=== PATIENT | male | born 1960 | race Hispanic/Latino ===

== ENCOUNTER 2018-11-22 08:06 | Day surgery (SDC) | payer MEDICAID ==
[~2018-11-22] VITALS: Ht 157.5 cm; Wt 91.6 kg
[~2018-11-22 08:06] MED LIST: CETI10CA5 PO; CHOL5POW MC; CLON0.5T23 PO; NIAC500C3 PO; PARO-37 PO; SODIUM CHLORIDE 0.9% 1000ML 1,000 ML IV ONE; TRAZ-187 PO
[2018-11-22 09:32] VITALS: BP 143/97
[2018-11-22 11:15] VITALS: BP 100/70
[2018-11-22 11:20] VITALS: BP 99/60
[2018-11-22 11:25] VITALS: BP 102/78
[2018-11-22 11:30] VITALS: BP 108/79
[2018-11-22 11:35] VITALS: BP 112/70
== END 2018-11-22 12:50 | disposition home or self-care (01) ==
LOC: DAH 08:06
PROVIDERS: ATTEND Internal Medicine
DX: Z12.11 Encounter for screening for malignant neoplasm of colon (principal); K63.5 Polyp of colon; K62.1 Rectal polyp; K57.30 Diverticulosis of large intestine without perforation or abscess without bleeding; F41.9 Anxiety disorder, unspecified; F32.9 Major depressive disorder, single episode, unspecified; E66.9 Obesity, unspecified; Z68.37 Body mass index [BMI] 37.0-37.9, adult; Z86.010 Personal history of colon polyps; Z79.899 Other long term (current) drug therapy; Z90.49 Acquired absence of other specified parts of digestive tract; Z98.890 Other specified postprocedural states; Z82.49 Family history of ischemic heart disease and other diseases of the circulatory system; Z83.3 Family history of diabetes mellitus
CPT/HCPCS: 45380; 88305; A4606; J7030

== ENCOUNTER → 2021-12-09 | Outpatient (CLI) | payer MEDICAID ==
[~2021-12-09] MED LIST changes: +NIAC500C13 PO; -NIAC500C3 PO; -SODIUM CHLORIDE 0.9% 1000ML 1,000 ML IV ONE
== END | disposition home or self-care (01) ==
LOC: RAH 12:45
PROVIDERS: ATTEND Family Medicine
DX: R22.42 Localized swelling, mass and lump, left lower limb (principal)
CPT/HCPCS: 93971